=== PATIENT | female | born 1990 | race Caucasian/White ===

== ENCOUNTER 2020-08-02 03:54 | Emergency (ER) | payer MEDICAID ==
[~2020-08-02] VITALS: Ht 147.3 cm; Wt 40.9 kg
[2020-08-02 04:08] VITALS: Ht 147.3 cm; Wt 40.9 kg
[2020-08-02 05:02] VITALS: BP 110/76
== END 2020-08-02 05:02 | disposition home or self-care (01) ==
LOC: ED 03:54
DX: N39.0 Urinary tract infection, site not specified (principal)
CPT/HCPCS: J1885